=== PATIENT | male | born 1950 | race African-American/Black ===

== ENCOUNTER 2021-08-05 06:37 | Outpatient (CLI) | payer OTHER ==
[2021-08-05 07:01] LABS: Hemoglobin 12.6 g/dL (14.0-18.0); Mean Corpuscular HGB CONC 35.6 g/dL (32.0-36.0); Mean Corpuscular Hemoglobin 34.2 pg (27.0-31.0); Mean Corpuscular Volume 96.2 fL (78.0-98.0); Mean Platelet Volume 11.7 fL (7.4-10.4); Platelet Count 221 thou/uL (130-400); RBC Distribution Width 11.1 % (11.5-14.5); Red Blood Cell (RBC) Count 3.69 mill/uL (4.70-6.10); White Blood Cell (WBC) Count 6.6 thou/uL (4.8-10.8)
[2021-08-06 08:15] LABS: Total PSA 0.5 ng/mL (0.0-4.0)
== END 2021-08-05 06:38 | disposition home or self-care (01) ==
LOC: BURLAB 06:37
PROVIDERS: ATTEND Internal Medicine Endocrinology, Diabetes & Metabolism
DX: M81.8 Other osteoporosis without current pathological fracture (principal); E29.1 Testicular hypofunction
CPT/HCPCS: 36415; 84153; 84154; 84403; 85027